=== PATIENT | male | born 1960 ===

== ENCOUNTER 2016-11-27 07:30 | Day surgery (SDC) | payer OTHER ==
[2016-11-22 10:05] VITALS: BMI 28.8
[2016-11-27] MEDS ORDERED: Bupivacaine 0.5% Inj(30mL) ONE ×2 (07:31→08:00)
[2016-11-27] MEDS ORDERED: Propofol 10 mg/ml Inj (20 ML) ONE (07:55)
[2016-11-27] MEDS ORDERED: Midazolam 2 MG/2 ML VIAL ONE (07:55)
[2016-11-27] MEDS ORDERED: Lidocaine 1% Inj (20ml) ONE (07:58)
[2016-11-27 08:33] VITALS: TEMP 97.8
[2016-11-27] MEDS ORDERED: HYDROmorphone 0.5 mg/0.5 ml ISec IVP PRN (08:49)
[2016-11-27] MEDS ORDERED: Lactated Ringer's 1,000 ML IV SCH (09:00)
[2016-11-27 09:22] VITALS: O2SAT 99
[2016-11-27 10:37] VITALS: BP 129/75; PULSE 74; RESP 18
--- NOTE | 2016-11-27 14:24 | OP ---
PROCEDURE DATE: 11/27/2016 PREOPERATIVE DIAGNOSES: Flexor tendon and synovitis, trigger finger third digit right hand. POSTOPERATIVE DIAGNOSES: Flexor tendon and synovitis, trigger finger third digit right hand. PROCEDURE: Open surgical release with tight A1 patti with third digit right hand flexor tendon. TYPE OF ANESTHESIA: LMA anesthesia. DESCRIPTION OF PROCEDURE: The patient was taken to OR, right hand prepped and draped in sterile fashion with adequate anesthesia, gave the patient 2 g Ancef IV antibiotics, then exsanguinated the arm with Esmarch and made a chevron incision just distal to the distal flexor crease of the right hand the third digit and through skin knife. The limbs being little over a centimeter each and then going through the subcutaneous tissue exposing the flexor tendon with tight A1 patti, which was released with 15 blade. We removed the tendon, there was no more swapping. We irrigated out the wound after release of tourniquet, electrocautery controlled little bleeding and we closed the wound and dressed with 3-0 nylon horizontal mattress sutures and put him in a well-padded compression dressing to avoid hematoma. Tourniquet was released prior to wound closure. The patient sent to recovery room in good condition. Kevin Calles DO
== END 2016-11-27 10:40 | disposition home or self-care (01) ==
LOC: SDS 07:30
PROVIDERS: ATTEND Orthopaedic Surgery
DX: M65.331 Trigger finger, right middle finger (principal); M65.9 Synovitis and tenosynovitis, unspecified
CPT/HCPCS: 26055; J0690; J1170; J2250; J2405; J2704; J3010; J7120